=== PATIENT | male | born 1985 | race Two or more races ===

== ENCOUNTER 2018-05-14 09:35 | Emergency (ER) | payer SELFPAY ==
[2018-05-14] MEDS ORDERED: HYDROMORPHONE HCL INJ/PF 2 MG/ML AMPULE IM ONE (10:17)
[2018-05-14] MEDS ORDERED: LIDOCAINE 5% (700 MG) TRANSDERMAL ADH..PATCH TP ONE (10:17)
[2018-05-14] MEDS ORDERED: KETOROLAC TROMETHAMINE 60 MG/2 ML SDV IM ONE (10:17)
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
[2018-05-14 11:37] VITALS: BP 135/96
== END 2018-05-14 11:37 | disposition home or self-care (01) ==
LOC: ER 09:35
DX: M54.41 Lumbago with sciatica, right side (principal); M79.604 Pain in right leg; R20.0 Anesthesia of skin; F17.200 Nicotine dependence, unspecified, uncomplicated
CPT/HCPCS: 99283; 96372; J1885; J1170

== ENCOUNTER 2018-05-16 05:26 | Emergency (ER) | payer SELFPAY ==
[2018-05-16 05:34] VITALS: BP 153/94
== END 2018-05-16 06:20 | disposition left against medical advice (07) ==
LOC: ER 05:26
DX: Z53.21 Procedure and treatment not carried out due to patient leaving prior to being seen by health care provider (principal)

== ENCOUNTER 2018-05-19 20:26 | Emergency (ER) | payer SELFPAY | END 2018-05-19 20:40 | disposition left against medical advice (07) | LOC: ER 20:26 | DX: Z53.21 Procedure and treatment not carried out due to patient leaving prior to being seen by health care provider (principal) ==

== ENCOUNTER 2018-05-21 08:02 | Emergency (ER) | payer SELFPAY ==
[2018-05-21 08:09] VITALS: BP 140/94
[2018-05-21] MEDS ORDERED: CYCLOBENZAPRINE HCL 10 MG TABLET PO ONE (08:40)
[2018-05-21] MEDS ORDERED: PREDNISONE 20 MG TABLET PO ONE (08:40)
[2018-05-21] MEDS ORDERED: KETOROLAC TROMETHAMINE 60 MG/2 ML SDV IM ONE (08:40)
--- NOTE | 2018-05-21 08:46 | ER Document Report ---
ED General - General Chief Complaint: Back Pain Stated Complaint: LEG PAIN Time Seen by Provider: 05/21/18 08:21 TRAVEL OUTSIDE OF THE [place] IN LAST 30 DAYS: No - HPI Notes: Patient is a 32-year-old male that presents to the emergency department for chief complaint of back pain and sciatic pain. Patient reports 3 months of pain in his low back radiating down his right leg. He states he has chronic numbness in the right foot and posterior right leg. He denies any new symptoms today. He was seen in the emergency room a few days ago with the same symptoms and states he had some relief from the medicine he was given. He states he does not have any more of that medication. He denies any new symptoms today. He denies any fever, saddle anesthesia, bowel or bladder incontinence, and lower extremity weakness. He states his pain is sharp and worse with ambulation. He denies any relieving factors currently. He denies any new injury. He has not followed up with anyone as an outpatient for his back issues. Past Medical History: Reviewed in chart Past Surgical History: Reviewed in chart Social History: Reviewed in chart Family History: Reviewed and noncontributory for presenting illness Allergies: Reviewed, see documented allergy list. REVIEW OF SYSTEMS: CONSTITUTIONAL : No fever No chills No diaphoresis No recent illness EENT: No vision changes No congestion No sore throat CARDIOVASCULAR: No chest pain No palpitations RESPIRATORY: No shortness of breath No cough No difficulty breathing GASTROINTESTINAL: No abdominal pain No nausea No vomiting No diarrhea GENITOURINARY: No dysuria No hematuria No difficulty urinating MUSCULOSKELETAL: back pain leg pain No arm pain SKIN: No rashes No lesions LYMPHATIC: No swollen, enlarged glands. NEUROLOGICAL: No lightheadedness No headache No weakness No paresthesias PSYCHIATRIC: No anxiety No depression PHYSICAL EXAMINATION: Vital signs reviewed, nursing noted reviewed. GENERAL: Well-appearing, well-nourished and in no acute distress. HEAD: Atraumatic, normocephalic. EYES: Eyes appear normal, extraocular movements intact, sclera anicteric, conjunctiva are normal. ENT: nares patent, oropharynx clear without exudates. Moist mucous membranes. NECK: Normal range of motion, supple without lymphadenopathy LUNGS: Breath sounds clear to auscultation bilaterally and equal. No wheezes rales or rhonchi. HEART: Tachycardic rate and regular rhythm without murmurs ABDOMEN: Soft, nontender, normoactive bowel sounds. No rebound, guarding, or rigidity. No masses appreciated. EXTREMITIES: Right mid gluteal and SI tenderness, good range of motion, no pitting or edema. Back: No midline lumbar tenderness. Right paraspinal muscle tenderness and spasm. Normal range of motion. NEUROLOGICAL: No focal neurological deficits. Moves all extremities spontaneously Motor and sensory grossly intact on exam. PSYCH: Normal mood, normal affect. SKIN: Warm, Dry, normal turgor, no rashes or lesions noted on exposed skin - Related Data Allergies/Adverse Reactions: No Known Allergies Allergy (Verified 05/21/18 08:04) Past Medical History - Social History Smoking Status: Never Smoker Family History: Reviewed & Not Pertinent Renal/ Medical History: Reports: Hx Kidney Stones. Denies: Hx Peritoneal Dialysis Past Surgical History: Reports: Hx Genitourinary Surgery, Hx Orthopedic Surgery Physical Exam - Vital signs Vitals: Temp Pulse Resp BP Pulse Ox 97.4 F 124 H 16 140/94 H 100 05/21/18 08:07 05/21/18 08:07 05/21/18 08:07 05/21/18 08:07 05/21/18 08:07 Course - Re-evaluation Re-evalutation: 05/21/18 08:45 Vitals reviewed. Nursing notes reviewed. Patient is mildly tachycardic and appears uncomfortable. He was given Toradol, prednisone, and Flexeril for symptom medic management. He has no focal neurologic deficits or fevers. He has no symptoms consistent with acute cord compression including cauda equina syndrome. I do not suspect epidural abscess and he denies IV drug use and fevers. Patient symptoms have been unchanged for 3 months and he was encouraged to follow with primary care and orthopedics as an outpatient. He denies having any follow-up established at this time because of insurance reasons. I did deputy general counsel him on [email or web address] to further explore insurance possibilities. He will return to the emergency room for any new or concerning symptoms. He is stable at discharge. - Vital Signs Vital signs: Temp Pulse Resp BP Pulse Ox 97.4 F 124 H 16 140/94 H 100 05/21/18 08:07 05/21/18 08:07 05/21/18 08:07 05/21/18 08:07 05/21/18 08:07 Discharge - Discharge Clinical Impression: Right sided sciatica Condition: Stable Disposition: HOME, SELF-CARE Instructions: Low Back Pain ([facility]), Sciatica ([facility]) Additional Instructions: Please return to the emergency department if you have any worsening, or concern of your symptoms. Please return to the emergency department if you develop chest pain, difficulty breathing, severe abdominal pain, or ongoing vomiting. Please follow-up with your primary care physician in 2-3 days and any other recommended physicians. If prescribed, take all medications as directed. If you have any questions or concerns do not hesitate to return the emergency department for evaluation. Avoid heavy lifting or strenuous activities that could aggravate your symptoms. Return to the emergency room if you develop any bowel or bladder incontinence, worsening fevers, numbness in your groin, or new concerning symptoms Prescriptions: Cyclobenzaprine HCl [Flexeril 10 mg Tablet] 10 mg PO TIDP PRN #15 tab PRN Reason: pain Prednisone [Deltasone 20 mg Tablet] 2 tab PO DAILY 5 Days tablet Referrals: [facility] [Provider Group] - Follow up as needed
== END 2018-05-21 08:58 | disposition home or self-care (01) ==
LOC: ER 08:02
DX: M54.42 Lumbago with sciatica, left side (principal); R00.0 Tachycardia, unspecified
CPT/HCPCS: 99283; 96372; J1885; J7512